=== PATIENT | male | born 1955 | race Caucasian/White ===

== ENCOUNTER 2024-07-16 08:10 | Day surgery (SDC) | payer MEDICARE, SELFPAY ==
--- NOTE | 2024-07-12 06:11 | EKG_ITS ---
[facility] Test Date: 2024-07-12 Pat Name: CHANTELL MACHADO Department: Room: - Gender: Male Fire Control Officer: MARILIA : 1955 Requested By: Ilana Jade Order Number: [id number] Reading MD: Ilana Jade Measurements Intervals [place] Rate: 69 P: 44 MN: 170 QRS: 39 QRSD: 124 T: 38 QT: 386 QTc: 416 Interpretive Statements SINUS RHYTHM POSSIBLE LATERAL MYOCARDIAL INFARCTION , OF INDETERMINATE AGE Compared to ECG 11/09/2022 09:13:45 No significant changes /store/S0/[id number]/ecg/[id number].pdf
[2024-07-12 07:51] VITALS: BMI 28.7
[2024-07-12 08:51] LABS: Basophils % (Auto) 1 % (0-2.5); Eosinophils # (Auto) 0.1 Thou/mm3 (0.0-0.5); Eosinophils % (Auto) 2 % (0-10); Hematocrit 43.7 % (41.0-53.0); Hemoglobin 14.6 g/dL (13.5-16.0); Immature Granulocytes % (Auto) 0 % (0-0); Immature Granulocytes Auto 0.02 Thou/mm3 (0.00-0.00); Lymphocytes # (Auto) 1.5 Thou/mm3 (1.0-4.8); Lymphocytes % (Auto) 26 % (10-50); Mean Corpuscular HGB Conc 33.4 g/dl (31.0-37.0); Mean Corpuscular Hemoglobin 30.8 pg (25.0-35.0); Mean Corpuscular Volume 92 fL (80-100); Monocytes # (Auto) 0.5 Thou/mm3 (0.0-0.8); Monocytes % (Auto) 9 % (0-12); Neutrophils # (Auto) 3.6 Thou/mm3 (1.8-7.7); Neutrophils % (Auto) 62 % (37-80); Nucleated Red Blood Cell % 0 /100 WBC (0); Platelet Count 178 Thou/mm3 (140-440); RDW Standard Deviation 44.7 fL (35.1-43.9); Red Blood Count 4.74 Miln/mm3 (4.50-5.90); White Blood Count 5.8 Thou/mm3 (3.8-10.6)
[2024-07-12 09:12] LABS: Alanine Aminotransferase 27 U/L (10-49); Albumin, Serum 4.4 gm/dL (3.4-4.8); Albumin/Globulin Ratio 1.6 (1.2-2.2); Alkaline Phosphatase 55 U/L (46-116); Anion Gap 7 (7-16); BUN/Creatinine Ratio 16 Ratio (12-20); Bilirubin,Total 0.6 mg/dL (0.3-1.2); Blood Urea Nitrogen 16 mg/dL (9-23); Carbon Dioxide 26.8 mMol/L (20.0-31.0); Chloride 105 mMol/L (98-107); Globulin 2.8 gm/dL (2.3-3.5); Glucose 116 mg/dL (74-106); Osmolality,Calculated 279 (275-295); Potassium 4.8 mMol/L (3.4-5.1); Sodium 139 mMol/L (136-145); Total Protein 7.2 gm/dL (5.7-8.2); eGFR > 60 See Note
[2024-07-12 09:18] LABS: Aspartate Amino Transferase 21 U/L (0-34)
--- NOTE | 2024-07-15 13:32 | SUR.PREOP ---
Cardiac records reviewed with Dr Vasquez.
[2024-07-16] VITALS (8 sets, daily range): BP systolic 125–157; BP diastolic 78–95; PULSE 69–96; RESP 12–27; TEMP 36.4–36.8; O2SAT 95–99; BMI 29.9
[2024-07-16] MEDS: RINGERS LACTATED 1000 ML 1,000 ML 20 ML IV (08:35)
--- NOTE | 2024-07-16 09:33 | CHAP ---
Visited with patient briefly giving encouragement and prayer.
--- NOTE | 2024-07-16 11:30 | SUR.PHASEI ---
pt received to [facility]. vss. breathing even and unlabored. dressing to right inguinal area cdi. report from nurse nori and praveen rodney.
--- NOTE | 2024-07-16 11:42 | ESOP_ITS ---
Date of Procedure 07/16/24 Pre Op Diagnosis Right inguinal hernia Post Op Diagnosis Direct right inguinal hernia Procedure Right inguinal hernia repair with mesh Findings Patient was found to have direct right inguinal hernia Procedure Description Patient brought into the operating room in supine position. After administration of general endotracheal anesthesia, patient's right groin was shaved, prepped and draped in standard surgical manner. The right inguinal crease was anesthetized with half percent Marcaine. An approximately 8 cm incision was made and dissection was carried to subcutaneous tissue. The Jorje's fascia was divided and the external oblique aponeurosis was opened towards the external ring. The hernia sac and the spermatic cord structures were from the posterior aspect of the external oblique aponeurosis at the level of pubic tubercle. The hernia sac was then meticulously dissected off the spermatic cord structures at the level of internal ring. Patient was noted to have direct right inguinal hernia defect. The defect was primarily closed with interrupted [id number] sutures using 0 Vicryl. The floor of inguinal canal was then reconstructed with ultra Pro proceed mesh. The mesh was secured with running 2-0 Prolene suture. The mesh secured medially to the pubic tubercle, superiorly into the conjoin tendon, inferiorly and to the shelving edge of inguinal ligament, the mesh was placed around the cord structures and tacked under the external oblique aponeurosis laterally. The area was copiously and thoroughly washed and irrigated, all the fluids were suctioned and the suction fluid returned clear. Hemostasis was adequate and satisfactory. External oblique aponeurosis was closed with running 2-0 Vicryl suture, and Jorje's fascia was closed with interrupted suture using 3-0 Vicryl. The incision was closed with 4-0 Monocryl in subcutaneous fashion. Instruments, needles and sponge counts were reported to be correct ?2. Patient tolerated the procedure well. He was extubated, breathing spontaneously and without difficulty and was transferred to postanesthesia care in stable condition. Anesthesia GETA and local Pathology / specimen None Estimated Blood Loss 5 Condition Stable Disposition PACU Surgeon Ilana Jade MD Surgical Staff Operation Date: 07/16/24 10:15 Case Staff BUILDING CONSTRUCTION TEACHER: Skylar Concepcion RN First Assistant: Winter Zamora
--- NOTE | 2024-07-16 12:02 | SUR.PHASEII ---
1202 Report received from Layne GALO
--- NOTE | 2024-07-16 12:02 | SUR.PHASEII ---
report to nurse carmen. pt stable ready for discharge. dressing cdi.
--- NOTE | 2024-07-16 12:36 | SUR.PHASEII ---
1236 Patient meets discharge criteria from recovery, awake and alert, breathing unlabored, vital signs stable, denies pain, dressing intact with abdominal binder; no bleeding noted, patient ate a jello and drinking apple juice; denies nausea, patient voided in the restroom prior to discharge, able to dress himself into his clothing, discharge instructions given to patient and patients , signed discharge instructions. Patient given all his belongings prior to discharge, transported via wheelchair and left in a private vehicle.
== END 2024-07-16 12:36 | disposition home or self-care (01) ==
PROVIDERS: Anesthesiology; PCP Family Medicine; Referring Provider Surgery; Visit Provider Surgery
PROC: (CPT 49505; principal; 2024-07-16 10:00)
DX: K40.90 Unilateral inguinal hernia, without obstruction or gangrene, not specified as recurrent (principal); Z01.810 Encounter for preprocedural cardiovascular examination
CPT/HCPCS: 49505; 36415; 80053; 85025; 93005; A4217; A4649; C1781; J0690; J1100; J2405; J2704; J3010; J3490; J7120; J1805